=== PATIENT | female | born 1990 | race American Indian/Alaskan Native ===

== ENCOUNTER 2017-06-08 15:43 | Emergency (ER) | payer SELFPAY ==
[2017-06-08] MEDS ORDERED: KEFLEX PO ONE (18:27)
[2017-06-08] MEDS ORDERED: BOOSTRIX IM ONE (18:27)
[2017-06-08] MEDS ORDERED: NORCO 5/325 PO ONE (18:27)
[2017-06-08] MEDS ORDERED: XYLOCAINE 2%/EPI 1:100,000 INFILTRATI ONE (18:28)
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
[2017-06-08] MEDS ORDERED: TRIPLE ANTIBIOTIC TP ONE (20:28)
[2017-06-08 20:34] VITALS: BP 123/72
== END 2017-06-08 20:45 ==
LOC: ED 15:43
DX: S61.411A Laceration without foreign body of right hand, initial encounter (principal); S60.812A Abrasion of left wrist, initial encounter; F17.200 Nicotine dependence, unspecified, uncomplicated; X99.0XXA Assault by sharp glass, initial encounter; Y93.89 Activity, other specified; Y99.8 Other external cause status; Y92.89 Other specified places as the place of occurrence of the external cause
CPT/HCPCS: 90471; 90715; A6250

== ENCOUNTER 2021-01-04 04:45 | Emergency (ER) | payer MEDICAID ==
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
[2021-01-04 06:30] LABS: Basophils % (Auto) 0.2 % (0.0-1.8); Eosinophils % (Auto) 0.2 % (0.0-4.3); Hematocrit 37.7 % (30.3-42.9); Hemoglobin 12.4 gm/dl (10.1-14.3); Lymphocytes # (Auto) 1.3 K/mm3 (1.2-5.4); Lymphocytes % (Auto) 21.5 % (13.4-35.0); Mean Corpuscular HGB Conc 33 % (30-34); Mean Corpuscular Volume 90 fl (79-97); Monocytes # (Auto) 0.6 K/mm3 (0.0-0.8); Monocytes % (Auto) 9.2 % (0.0-7.3); Platelet Count 227 K/mm3 (140-440); Red Blood Count 4.17 M/mm3 (3.65-5.03); Red Cell Distribution Width 14.1 % (13.2-15.2)
[2021-01-04 06:35] LABS: Bacteria,Urine 1+ /HPF (Negative); Bilirubin,Urine NEG (Negative); Blood,Urine NEG (Negative); Color,Urine Yellow (Yellow); Mucus,Urine 2+ /HPF
[2021-01-04 06:43] LABS: Amphetamine Screen,Urine PRESUMPTIVE NEGATIVE; Benzodiazepines Screen,Urine PRESUMPTIVE NEGATIVE; Cannabinoid Screen,Urine PRESUMPTIVE POSITIVE; Cocaine Screen,Urine PRESUMPTIVE NEGATIVE; Methadone Screen,Urine PRESUMPTIVE NEGATIVE; Opiate Screen,Urine PRESUMPTIVE NEGATIVE
[2021-01-04 07:16] LABS: Alanine Aminotransferase 22 units/L (7-56); Albumin 4.8 g/dL (3.9-5); Blood Urea Nitrogen 13 mg/dL (7-17); Calcium 9.5 mg/dL (8.4-10.2); Hemolysis Index 11
[2021-01-04 07:20] LABS: BUN/Creatinine Ratio 19
[2021-01-04 08:09] VITALS: BP 138/78
[2021-01-04] MEDS ORDERED: NITROFURANTOIN MONOHYD/M-CRYST 100 MG CAP PO ONE (08:22)
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
== END 2021-01-04 08:53 | disposition home or self-care (01) ==
LOC: ED 04:45
DX: F25.0 Schizoaffective disorder, bipolar type (principal); F12.90 Cannabis use, unspecified, uncomplicated; N39.0 Urinary tract infection, site not specified; F17.200 Nicotine dependence, unspecified, uncomplicated; Z79.899 Other long term (current) drug therapy
CPT/HCPCS: 36415; 80053; 80307; 80320; 81001; 84703; 85025; 87086; G0480

== ENCOUNTER 2021-02-18 16:19 | Emergency (ER) | payer MEDICAID ==
--- NOTE | 2021-02-18 17:45 | Emergency Department Report ---
ED General Adult HPI - General Chief complaint: Earache Stated complaint: COTTON IN LT EAR/WISDOM TOOTH PAIN Time Seen by Provider: 02/18/21 17:28 Source: patient Mode of arrival: Ambulatory Limitations: No Limitations - History of Present Illness Initial comments: 30-year-old -[place] female emerge department complaining of a long history of chronic dental pain, cavities and infectious processes in need of dental extraction. Her insurance is due to clear on tomorrow as she has plans to follow-up with a oral surgeon for definitive treatment of her tooth but states that she feels an infection is beginning to develop due to the pain and throbbing in the area of one of her eroded caries and she wants to be started on oral antibiotic so does not delay her dental visit. Reports no fever, chills, sweats reports no chest pain palpitation no nausea vomiting. Secondly she reports stuffy a Q-tip deep in her ear to try to block the cold air that was blowing in her ear while she was attending [employer] a couple a couple days ago she has been unable to retrieve the cotton ball so presents to the ED also to have that evaluated and possibly removed. She reports no dizziness, no ear discharge no tinnitus. She does have slightly decreased hearing to the left ear. Consistency: constant Improves with: none Associated Symptoms: denies: chest pain, cough, diaphoresis, headaches, shortness of breath, syncope, weakness Treatments Prior to Arrival: none - Related Data Previous Rx's Medication Instructions Recorded Last Taken Type Betamethasone/Propylene Glyc 15 gm TP BID #1 oint...g. 05/04/14 Unknown Rx [Diprolene 0.05% Ointment] hydrOXYzine HCL [Atarax] 25 mg PO Q6HR PRN #20 tablet 05/04/14 Unknown Rx Ibuprofen [Motrin] 600 mg PO Q8H PRN #20 tablet 06/08/17 Unknown Rx cephALEXin [Keflex] 500 mg PO Q12HR #10 cap 06/08/17 Unknown Rx Nitrofurantoin [place]/M-Cryst 100 mg PO Q12HR #10 capsule 01/04/21 Unknown Rx [Macrobid CAP] Amoxicillin [Amoxicillin TAB] 875 mg PO BID #20 tablet 02/18/21 Unknown Rx Chlorhexidine Mouthwash [Peridex] 15 ml MM BID #1 bottle 02/18/21 Unknown Rx Lidocaine Viscous 2% 5 ml MM Q3H PRN #120 udc 02/18/21 Unknown Rx Allergies Allergy/AdvReac Type Severity Reaction Status Date / Time kiwi AdvReac Unknown Verified 02/18/21 16:32 ED Review of Systems ROS: Stated complaint: COTTON IN LT EAR/WISDOM TOOTH PAIN Other details as noted in HPI Comment: All other systems reviewed and negative ED Past Medical Hx - Past Medical History Hx Psychiatric Treatment: Yes (Bipolar, Shiziophrenia, Stress depression,Nondefiant) - Surgical History Past Surgical History?: No - Social History Smoking Status: Current Every Day Smoker Substance Use Type: None - Medications Home Medications: Home Medications Medication Instructions Recorded Confirmed Last Taken Type Betamethasone/Propylene Glyc 15 gm TP BID #1 oint...g. 05/04/14 Unknown Rx [Diprolene 0.05% Ointment] hydrOXYzine HCL [Atarax] 25 mg PO Q6HR PRN #20 tablet 05/04/14 Unknown Rx Ibuprofen [Motrin] 600 mg PO Q8H PRN #20 tablet 06/08/17 Unknown Rx cephALEXin [Keflex] 500 mg PO Q12HR #10 cap 06/08/17 Unknown Rx Nitrofurantoin [place]/M-Cryst 100 mg PO Q12HR #10 capsule 01/04/21 Unknown Rx [Macrobid CAP] Amoxicillin [Amoxicillin TAB] 875 mg PO BID #20 tablet 02/18/21 Unknown Rx Chlorhexidine Mouthwash [Peridex] 15 ml MM BID #1 bottle 02/18/21 Unknown Rx Lidocaine Viscous 2% 5 ml MM Q3H PRN #120 udc 02/18/21 Unknown Rx ED Physical Exam - General Limitations: No Limitations General appearance: alert, in no apparent distress - Head Head exam: Present: atraumatic, normocephalic - Eye Eye exam: Present: normal appearance, PERRL Pupils: Present: normal accommodation - ENT ENT exam: Present: mucous membranes moist, other (Cotton loss into the left ear canal, alf a.m. no swelling or bleeding is present.). Absent: normal orophraynx (Severe dental erosion throughout the entire dental cavity multiple dental cavities adjacent gingival erythema airway is patent tongue and uvula are midline are midline there is severe dental caries noted) - Neck Neck exam: Present: normal inspection, full ROM - Respiratory Respiratory exam: Present: normal lung sounds bilaterally. Absent: respiratory distress, wheezes, chest wall tenderness, accessory muscle use - Cardiovascular Cardiovascular Exam: Present: regular rate, normal rhythm. Absent: systolic murmur, diastolic murmur, rubs, gallop - GI/Abdominal GI/Abdominal exam: Present: soft, normal bowel sounds - Extremities Exam Extremities exam: Present: normal inspection - Back Exam Back exam: Present: normal inspection - Neurological Exam Neurological exam: Present: alert, oriented X3 - Psychiatric Psychiatric exam: Present: normal affect, normal mood - Skin Skin exam: Present: warm, dry, intact, normal color. Absent: rash - Procedure Description Procedures done: Ear foreign body removal. No anesthesia was needed. Alligator forceps were used to retrieve the cotton ball with no complications. Cottonball was removed this entirety on the first pass no damage to the ear canal no damage to the tympanic membrane the patient does report and immediately improvement in her hearing. Critical care attestation.: If time is entered above; I have spent that time in minutes in the direct care of this critically ill patient, excluding procedure time. ED Disposition Clinical Impression: Dentalgia, FB ear, Infected dental caries Disposition: DC-01 TO HOME OR SELFCARE Is pt being admited?: No Does the pt Need Aspirin: No Condition: Stable Instructions: Preventive Dental Care, Adult, Ear Foreign Body, Acute Pain, Adult, Trench Mouth, Diet and Dental Disease Prescriptions: Amoxicillin [Amoxicillin TAB] 875 mg PO BID #20 tablet Lidocaine Viscous 2% 5 ml MM Q3H PRN #120 udc PRN Reason: Pain, Moderate (4-6) Chlorhexidine Mouthwash [Peridex] 15 ml MM BID #1 bottle Referrals: [facility] [Provider Group] - 3-5 Days
== END 2021-02-18 18:33 | disposition home or self-care (01) ==
LOC: ED 16:19
DX: T16.2XXA Foreign body in left ear, initial encounter (principal); K02.9 Dental caries, unspecified; K08.89 Other specified disorders of teeth and supporting structures; X58.XXXA Exposure to other specified factors, initial encounter; Y93.89 Activity, other specified; Y92.89 Other specified places as the place of occurrence of the external cause; Y99.8 Other external cause status
CPT/HCPCS: 99281

== ENCOUNTER 2021-02-23 15:37 | Emergency (ER) | payer MEDICAID ==
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
[2021-02-23 19:33] VITALS: BP 122/86
== END 2021-02-23 19:30 | disposition home or self-care (01) ==
LOC: ED 15:37
DX: S41.052A Open bite of left shoulder, initial encounter (principal); K03.81 Cracked tooth; F31.9 Bipolar disorder, unspecified; F20.9 Schizophrenia, unspecified; F17.200 Nicotine dependence, unspecified, uncomplicated; Z79.1 Long term (current) use of non-steroidal anti-inflammatories (NSAID); Z79.2 Long term (current) use of antibiotics; Z79.899 Other long term (current) drug therapy; Z91.018 Allergy to other foods; Y04.1XXA Assault by human bite, initial encounter; Y93.89 Activity, other specified; Y92.89 Other specified places as the place of occurrence of the external cause; Y99.8 Other external cause status
CPT/HCPCS: 99281